=== PATIENT | female | born 1985 | race Caucasian/White ===

== ENCOUNTER → 2019-09-12 | Outpatient (CLI) | payer OTHER ==
[2019-09-13 07:49] LABS: Levetiracetam (Keppra) 11.4 ug/mL (3.0-60.0)
[2019-09-14 08:24] LABS: Topiramate 1.8 ug/mL (2.0-20.0)
== END ==
LOC: LABWHC1 11:26
PROVIDERS: ATTEND Psychiatry & Neurology Neurology
DX: G40.109 Localization-related (focal) (partial) symptomatic epilepsy and epileptic syndromes with simple partial seizures, not intractable, without status epilepticus (principal)
CPT/HCPCS: 36415; 80177; 80183; 80201; 84295

== ENCOUNTER → 2021-10-04 | Outpatient (CLI) | payer OTHER ==
[2021-10-06 07:47] LABS: Topiramate 2.7 ug/mL (2.0-20.0)
[2021-10-06 07:55] LABS: Levetiracetam (Keppra) 13.5 ug/mL (3.0-60.0)
== END | disposition home or self-care (01) ==
LOC: LABWHC1 09:42
PROVIDERS: ATTEND Psychiatry & Neurology Neurology
DX: G40.109 Localization-related (focal) (partial) symptomatic epilepsy and epileptic syndromes with simple partial seizures, not intractable, without status epilepticus (principal)
CPT/HCPCS: 36415; 80177; 80183; 80201; 84295

== ENCOUNTER → 2023-01-15 | Outpatient (CLI) | payer OTHER ==
--- NOTE | 2023-01-15 18:31 | MR ---
EXAMINATION TYPE: MR brain wo con DATE OF EXAM: 01/15/2023 6:16 PM COMPARISON: None. CLINICAL INDICATION:Female, 37 years old with history of G40.109 G40.919; Increased Seizures (Break through) TECHNIQUE: Multi planar, multi sequence imaging was performed through the brain including: T1, T2, In version recovery, Diffusion weighted imaging, and gradient echo imaging. No gadolinium was given. FINDINGS: The mesial temporal lobes appear symmetric without evidence for atrophy or sclerosis. The keaitng-white junctions, ventricular system, and cisterns appear unremarkable. Midline structures show no abnormali ty. Diffusion-weighted imaging shows no evidence of restricted diffusion. The susceptibility weighted images do not reveal any evidence for micro-hemorrhage. The bone marrow signal is within normal limits. Paranasal sinuses and mastoid air cells: No significant paranasal sinus disease. Visualized orbits: Orbital contents are intact. IMPRESSION: No evidence of intracranial mass or acute/subacute infarct. Normal-appearing mesial temporal lobes.
== END | disposition home or self-care (01) ==
LOC: RADMRIMAIN 17:24
PROVIDERS: ATTEND Psychiatry & Neurology Neurology
DX: G40.109 Localization-related (focal) (partial) symptomatic epilepsy and epileptic syndromes with simple partial seizures, not intractable, without status epilepticus (principal)
CPT/HCPCS: 70551

== ENCOUNTER → 2024-09-16 | Outpatient (CLI) | payer OTHER ==
--- NOTE | 2024-09-16 14:17 | XR ---
EXAMINATION TYPE: XR chest 2V DATE OF EXAM: 09/16/2024 12:36 PM COMPARISON: 03/23/2010 CLINICAL INDICATION: Female, 38 years old with history of R05.9 COUGH, UNSPECIFIED, TECHNIQUE: XR chest 2V view(s) obtained. FINDINGS: The heart size is normal. The pulmonary vasculature is normal. The lungs are clear. Electronic device overlies left chest with leads directed towards the left neck IMPRESSION: 1. No acute pulmonary process. [facility], , 09/16/2024 2:14 PM
== END | disposition home or self-care (01) ==
LOC: RADXRMAIN 12:17
PROVIDERS: ATTEND Family Medicine
DX: R05.9 Cough, unspecified (principal)
CPT/HCPCS: 71046